=== PATIENT | male | born 1990 | race Caucasian/White ===

== ENCOUNTER 2018-12-02 11:58 | Emergency (ER) | payer MEDICAID, OTHER ==
[~2018-12-02] VITALS: Ht 188 cm; Wt 95.0 kg
[2018-12-02 12:05] VITALS: BP 155/96
[2018-12-02] MEDS ORDERED: ketorolac trometh inj. 60 MG/2 ML VIAL IM ONE (12:40)
[2018-12-02] MEDS ORDERED: LIDOcaine 1% w/epiNEPHrine 1:200,000 30ml vial IM ONE (12:40)
[2018-12-02] MEDS ORDERED: BACDS PO (12:57)
== END 2018-12-02 13:17 | disposition home or self-care (01) ==
LOC: ER 11:58
DX: L02.415 Cutaneous abscess of right lower limb (principal); F17.210 Nicotine dependence, cigarettes, uncomplicated; Z86.14 Personal history of Methicillin resistant Staphylococcus aureus infection; Z79.899 Other long term (current) drug therapy
CPT/HCPCS: 10060; 96372; 99283; J1885; J3490

== ENCOUNTER 2022-10-12 20:10 | Emergency (ER) | payer MEDICAID, OTHER ==
[~2022-10-12] VITALS: Ht 188 cm; Wt 88.0 kg
[2022-10-12 20:16] VITALS: BP 149/89
== END 2022-10-12 23:46 | disposition left against medical advice (07) ==
LOC: ER 20:10
DX: M79.89 Other specified soft tissue disorders (principal); Z53.21 Procedure and treatment not carried out due to patient leaving prior to being seen by health care provider

== ENCOUNTER 2022-10-14 17:39 | Emergency (ER) | payer MEDICAID ==
[~2022-10-14] VITALS: Ht 188 cm; Wt 86.4 kg
[2022-10-14 17:59] VITALS: BP 114/70
[2022-10-14] MEDS ORDERED: sulfamethoxazole/trimethoprim DS (800/160mg) tablet PO ONE (19:50)
[2022-10-14] MEDS ORDERED: cephalexin 250mg capsule PO ONE (19:50)
[2022-10-14 20:08] LABS: ALANINE AMINOTRANSFERASE 52 U/L (12-78); ALBUMIN 3.5 G/DL (3.4-5.0); ALBUMIN/GLOBULIN RATIO 0.6 (1.1-1.5); ALKALINE PHOSPHATASE 121 IU/L (46-116); ANION GAP 12 (8-16); ASPARTATE AMINO TRANSFERASE 49 U/L (10-37); BILIRUBIN,TOTAL 0.3 MG/DL (0.1-1.0); BLOOD UREA NITROGEN 10 MG/DL (7-18); BUN/CREATININE RATIO 11.9 (5.4-32.0); CALCIUM 8.8 MG/DL (8.5-10.1); CHLORIDE 98 MMOL/L (99-107); CREATININE 0.84 MG/DL (0.60-1.10); GLUCOSE 128 MG/DL (70-104); POTASSIUM 3.8 MMOL/L (3.5-5.1); SODIUM 132 MMOL/L (135-145); TOTAL CARBON DIOXIDE 22.2 MMOL/L (24-32); TOTAL PROTEIN 8.9 G/DL (6.4-8.2); eGFR > 90 ML/MIN
[2022-10-14] MEDS ORDERED: SULF1TAB49 PO (20:28)
[2022-10-14] MEDS ORDERED: CEPH500C2 PO (20:28)
== END 2022-10-14 20:44 | disposition home or self-care (01) ==
LOC: ER 17:40
DX: L03.113 Cellulitis of right upper limb (principal); M79.641 Pain in right hand; Z86.14 Personal history of Methicillin resistant Staphylococcus aureus infection
CPT/HCPCS: 36415; 80053; 99283

== ENCOUNTER 2024-04-07 08:00 | Emergency (ER) | payer MEDICAID ==
[~2024-04-07] VITALS: Ht 188 cm; Wt 82.0 kg
[2024-04-07 09:32] VITALS: BP 121/67; PULSE 101; O2SAT 100
[2024-04-07] MEDS ORDERED: METH-798 PO (09:40)
[2024-04-07] MEDS ORDERED: IBUP-862 PO (09:40)
[2024-04-07] MEDS ORDERED: HYDR-3965 PO (09:40)
[2024-04-07] MEDS: ketorolac trometh. 30mg/ml inj. IM ONE (09:53)
[2024-04-07] MEDS: ketorolac tromethamine 15mg/ml inj. IM ONE (10:04)
[2024-04-07 10:25] VITALS: RESP 20
[2024-04-07 10:43] VITALS: TEMP 97.9
== END 2024-04-07 10:46 | disposition home or self-care (01) ==
LOC: ER 08:00
DX: S80.02XA Contusion of left knee, initial encounter (principal); S39.82XA Other specified injuries of lower back, initial encounter; R20.0 Anesthesia of skin; W18.39XA Other fall on same level, initial encounter; Y93.89 Activity, other specified; Y92.89 Other specified places as the place of occurrence of the external cause; Y99.8 Other external cause status
CPT/HCPCS: 29505; 72131; 73564; 96372; 99285; J1885

== ENCOUNTER 2024-04-09 17:01 | Emergency (ER) | payer MEDICAID ==
[~2024-04-09] VITALS: Ht 188 cm; Wt 81.8 kg
[~2024-04-09 17:01] MED LIST: HYDR-3965 PO; IBUP-862 PO; METH-798 PO
[2024-04-09 18:23] LABS: BASOPHILS # (AUTO) 0.1 X10'3 (0-0.2); BASOPHILS % (AUTO) 0.6 % (0-1); EOSINOPHILS % (AUTO) 0 % (0-6); HEMOGLOBIN 9.7 g/dl (14.0-17.9); LYMPHOCYTES # (AUTO) 0.7 X10'3 (1.1-4.8); LYMPHOCYTES % (AUTO) 2.8 % (21-51); MEAN CORPUSCULAR HEMOGLOBIN 28.9 PG (27.0-31.0); MEAN CORPUSCULAR HGB CONC 33.3 g/dL (33.0-36.5); MEAN CORPUSCULAR VOLUME 86.7 FL (78-98); MEAN PLATELET VOLUME 7.7 FL (7.4-10.4); MONOCYTES # (AUTO) 1.4 X10'3 (0-0.9); MONOCYTES % (AUTO) 5.5 % (2-12); NEUTROPHILS # (AUTO) 23.9 X10'3 (1.8-7.7); NEUTROPHILS % (AUTO) 91.1 % (42-75); PLATELET COUNT 486 X10'3 (140-440); RED BLOOD COUNT 3.35 X10'6 (4.70-6.10)
[2024-04-09 18:29] LABS: INR 1.2 INR
[2024-04-09 18:31] LABS: WHITE BLOOD COUNT 26.2 X10'3 (4.5-11.0)
[2024-04-09 18:34] LABS: ALANINE AMINOTRANSFERASE 43 U/L (12-78); ALBUMIN 2.2 G/DL (3.4-5.0); ALBUMIN/GLOBULIN RATIO 0.4 (1.1-1.5); ALKALINE PHOSPHATASE 163 IU/L (46-116); ANION GAP 6 (8-16); ASPARTATE AMINO TRANSFERASE 29 U/L (10-37); BILIRUBIN,TOTAL 0.5 MG/DL (0.1-1.0); BLOOD UREA NITROGEN 9 MG/DL (7-18); BUN/CREATININE RATIO 13.6 (10.0-20.0); CALCIUM 8.2 MG/DL (8.5-10.1); CHLORIDE 93 MMOL/L (99-107); CREATININE 0.66 MG/DL (0.60-1.10); GLUCOSE 147 MG/DL (70-104); POTASSIUM 3.4 MMOL/L (3.5-5.1); SODIUM 127 MMOL/L (135-145); TOTAL CARBON DIOXIDE 28.3 MMOL/L (24-32); TOTAL PROTEIN 7.2 G/DL (6.4-8.2); eCRCL 184 ML/MIN; eGFR > 90 ML/MIN
[2024-04-09 18:52] LABS: TOTAL CELLS COUNTED 100
[2024-04-09 18:53] LABS: PLATELET ESTIMATE INCREASED; POIKILOCYTOSIS FEW; TARGET CELLS FEW
[2024-04-09 19:02] LABS: C-REACTIVE PROTEIN 15.53 MG/DL (0.0-0.5)
[2024-04-09] MEDS: HYDROcodone/acetaminophen 5mg/325mg tablet PO ONE (19:11)
[2024-04-09] MEDS: normal saline 1000ML IV soln IVB ONE (19:12)
[2024-04-09] MEDS: dexamethasone sod phosphate 10mg/ml inj IV STA (19:26)
[2024-04-09] MEDS: ketorolac tromethamine 15mg/ml inj. IV ONE (19:26)
[2024-04-09] MEDS: LIDOcaine 1% (10mg/ml)w/preservative inj. 20ml MDV SQ ONE (19:27)
[2024-04-09] MEDS: CefTRIAXone/D5W-Rocephin 1gm 50 ML IV ONE (19:36)
[2024-04-09] MEDS: normal saline 1000ml 1,000 ML IV ONE (19:46)
[2024-04-09 20:32] LABS: BILIRUBIN,URINE NEGATIVE (Neg); CLARITY,URINE CLEAR (Clear); COLOR,URINE YELLOW (Yellow); GLUCOSE, URINE NEGATIVE (Neg); KETONES,URINE NEGATIVE (Neg); LEUKOCYTE ESTERASE ,URINE NEGATIVE (Neg); NITRITES, URINE NEGATIVE (Neg); OCCULT BLOOD,URINE NEGATIVE (Neg); PROTEIN,URINE 100 mg/dl (Neg); UROBILINOGEN,URINE >=8.0 E.U/dL (0.2-1.0)
[2024-04-09 20:33] LABS: UA COLLECTION TYPE FOLEY CATH
[2024-04-09 20:40] LABS: MUCUS STRANDS MODERATE /LPF (Neg); SQUAMOUS EPITHELIAL CELL,UR FEW /LPF (FEW)
[2024-04-09 20:41] LABS: BACTERIA,URINE 1+ /HPF (Neg); RBC,URINE 0-2 /HPF (0-2); RENAL CELLS, URINE FEW /HPF
[2024-04-09 20:42] LABS: TRANSITIONAL EPI CELLS,URINE FEW /HPF; WBC CLUMPS,URINE FEW /HPF (NEGATIVE)
[2024-04-09 21:29] VITALS: BP 136/85; PULSE 107; RESP 14; TEMP 100; O2SAT 99
== END 2024-04-09 21:33 | disposition hospice, inpatient (51) ==
LOC: ER 17:02
DX: M54.50 Low back pain, unspecified (principal); R20.0 Anesthesia of skin; R20.2 Paresthesia of skin; R50.9 Fever, unspecified; M62.838 Other muscle spasm; Z86.14 Personal history of Methicillin resistant Staphylococcus aureus infection; Z79.899 Other long term (current) drug therapy
CPT/HCPCS: 36415; 80053; 81001; 83605; 84145; 85007; 85025; 85610; 85651; 86140; 87040; 87077; 87088; 87186; 96365; 96375; 99291; 99292; J0696; J1100; J1885; J7030; 99284; 99285; A6449; C1758